=== PATIENT | male | born 1935 | race Caucasian/White ===

== ENCOUNTER 2018-07-29 09:12 | Day surgery (SDC) | payer MEDICARE ==
[2018-07-28 14:24] VITALS: BMI 25.7
[2018-07-29] MEDS ORDERED: Ketamine 50 MG/ML (10ML VIAL) ONE (11:27)
--- NOTE | 2018-07-29 13:54 | OP ---
DATE OF PROCEDURE: 07/29/2018 PREPROCEDURE DIAGNOSES: 1. Dysphagia oropharyngeal. 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 2. Personal history of colon polyps. He was at followup last year for colonoscopy as he had a large polyp removed piecemeal from the right colon in 2016, but he did not return last year. POSTPROCEDURE DIAGNOSES: 1. Esophagogastroduodenoscopy normal. Empiric dilatation performed with 54-Qatari Lobo dilator in the entire esophagus and 60-Qatari in the proximal esophagus after there was a second-look at both dilations and after the second, there was some mucosal disruption in the upper esophageal sphincter area. After the 60-Qatari dilatation, there was no signs of perforation. 2. Colonoscopy notable for nine polyps scattered between the ascending and transverse and descending colons ranging in size from 3 to 6 mm, removed by hot snare polypectomy. 3. There was a 1 cm polyp in the cecum, which was removed by hot snare polypectomy and submitted in the same jar as the others. A clip was placed in this area to reduce risk of perforation. 4. There was a 1.5 cm sessile polyp on a fold in the ascending colon, it was removed by hot snare polypectomy and a clip was placed over that polypectomy site to help prevent postpolypectomy bleeding. 5. Previous tattoo site in the ascending colon was normal with no signs of residual polyp or tissue there. 6. Colonoscopy, otherwise normal. RECOMMENDATIONS: 1. PPI 40 mg once a day and Prilosec, this hopefully would help prevent recurrence of dysphagia. 2. We will do this for eight weeks. 3. Repeat colonoscopy in two years. 4. Await histopathology. 5. Resume Eliquis in five days. ANESTHESIA: TIVA. PROCEDURE IN DETAIL: After the patient was informed of the risks, benefits, and possible complications of endoscopy including perforation, bleeding, reaction to medication, and aspiration, informed consent was obtained. The patient brought to endoscopy suite, where he was sedated in gradual fashion. Once he was comfortable, bite block was placed inside the orifice. The endoscope was advanced through the esophagus, stomach, and second and third portion of the duodenum and was removed. There was good visualization of mucosa. The esophagus, stomach, and duodenum were all normal. There was no evidence of abnormalities, masses, or lesions. The visualized pharynx appeared normal. Vocal cords could not be seen. Empiric dilatation was performed. A 54-Qatari Lobo dilator in light of the patient's oropharyngeal dysphagia, second-look showed no effect. We then chose to dilate just the upper esophageal sphincter with the 60-Qatari dilator. This showed some mucosal disruption, second look with no signs of perforation. At this, the scope was removed. The patient was turned to the room and rectal exam was performed, which was normal. The endoscope was advanced to the anal canal through the colon to the cecum, which was identified by the ileocecal valve and appendiceal orifice. Exam was difficult for the manual pressure of the abdomen to reach the cecum. The prep was good. His colon was tortuous, difficult to examine. Nine polyps were found from the cecum to the proximal descending colon, which were 3 to 10 mm in size, all removed by hot snare polypectomy. One of these in the area of the cecum, had a clip placed over to help prevent bleeding. There was a large polyp about 1.5 cm on a fold in the ascending colon. This was removed by a hexagonal snare. Clip was placed in the area to prevent postpolypectomy bleeding. The tattoo site from the previous polypectomy in the ascending colon from 2016 was seen. There was no evidence of residual polyp, masses, or inflamed scar in this area. The scope was removed slowly and the remainder of the colon was visualized with no other polyps or masses seen. There was some diverticulosis. Retroflexed view showed some internal hemorrhoids. The scope was removed and the patient tolerated the procedure well. Job ID: [id number]
[2018-07-29] MEDS ORDERED: PROPOFOL 200 MG/20 ML VIAL ONE (14:54)
[2018-07-29] MEDS ORDERED: ePHEDrine 50 MG/ML VIAL ONE (14:54)
== END 2018-07-29 14:03 | disposition home or self-care (01) ==
LOC: SDC 09:12
PROVIDERS: ATTEND Internal Medicine Gastroenterology
PROC: 0D757ZZ Dilation of Esophagus, Via Natural or Artificial Opening (ICD-10-PCS; principal; 2018-07-29)
PROC: 0DJ08ZZ Inspection of Upper Intestinal Tract, Via Natural or Artificial Opening Endoscopic (ICD-10-PCS; 2018-07-29)
PROC: 0DBK8ZX Excision of Ascending Colon, Via Natural or Artificial Opening Endoscopic, Diagnostic (ICD-10-PCS; 2018-07-29)
PROC: 0DBE8ZX Excision of Large Intestine, Via Natural or Artificial Opening Endoscopic, Diagnostic (ICD-10-PCS; 2018-07-29)
DX: Z12.11 Encounter for screening for malignant neoplasm of colon (principal); D12.2 Benign neoplasm of ascending colon; D12.3 Benign neoplasm of transverse colon; K63.5 Polyp of colon; Q43.2 Other congenital functional disorders of colon; K64.8 Other hemorrhoids; R13.12 Dysphagia, oropharyngeal phase; K21.9 Gastro-esophageal reflux disease without esophagitis; I48.91 Unspecified atrial fibrillation; J44.9 Chronic obstructive pulmonary disease, unspecified; E78.00 Pure hypercholesterolemia, unspecified; I10 Essential (primary) hypertension; Z87.891 Personal history of nicotine dependence; Z86.010 Personal history of colon polyps; Z85.818 Personal history of malignant neoplasm of other sites of lip, oral cavity, and pharynx; Z79.01 Long term (current) use of anticoagulants; Z79.899 Other long term (current) drug therapy
CPT/HCPCS: 88305; J2704; J3490